=== PATIENT | male | born 2000 | race Caucasian/White ===

== ENCOUNTER 2019-06-17 15:13 | Emergency (ER) | payer OTHER, MEDICAID ==
[~2019-06-17] VITALS: Ht 172.7 cm; Wt 61.7 kg
[2019-06-17 15:30] VITALS: BP 143/68; Ht 172.7 cm; Wt 61.7 kg
== END 2019-06-17 16:42 | disposition home or self-care (01) ==
LOC: ED 15:13
DX: J45.901 Unspecified asthma with (acute) exacerbation (principal); R03.0 Elevated blood-pressure reading, without diagnosis of hypertension